=== PATIENT | female | born 1995 | race African-American/Black ===

== ENCOUNTER 2022-12-03 18:49 | Day surgery (SDC) | payer MEDICAID, OTHER ==
[2022-12-03] MEDS ORDERED: hydrALAZINE 20 MG/ML VIAL SLOW IVP PRN (19:00)
[2022-12-03 19:26] VITALS: BMI 29.0
== END 2022-12-03 21:00 | disposition left against medical advice (07) ==
LOC: CSHLD/OP 18:49
PROVIDERS: ATTEND Family Medicine
DX: O26.872 Cervical shortening, second trimester (principal); O99.512 Diseases of the respiratory system complicating pregnancy, second trimester; J45.50 Severe persistent asthma, uncomplicated; O99.342 Other mental disorders complicating pregnancy, second trimester; F41.8 Other specified anxiety disorders; O99.322 Drug use complicating pregnancy, second trimester; F12.90 Cannabis use, unspecified, uncomplicated; Z87.891 Personal history of nicotine dependence; Z3A.22 22 weeks gestation of pregnancy
CPT/HCPCS: 99281

== ENCOUNTER 2023-02-18 13:12 | Inpatient (IN) | payer OTHER ==
[~2023-02-18 13:12] MED LIST: Bupivacaine 0.25% HCL 30 ML VIAL ONE
[2023-02-18 13:45] VITALS: BMI 29.5
[2023-02-18] MEDS ORDERED: fentaNYL 50 mcg/mL 1 mL Vial SLOW IVP PRN (14:03)
[2023-02-18] MEDS ORDERED: Promethazine HCl 25 MG/ML VIAL IM PRN ×2 (14:03→15:49)
[2023-02-18] MEDS ORDERED: HYDROcodone/Acetaminophen 5/325 mg Tablet PO PRN ×2 (14:03)
[2023-02-18] MEDS ORDERED: Ibuprofen 800 MG TAB PO PRN (14:03)
[2023-02-18] MEDS ORDERED: Acetaminophen 500 MG TAB PO PRN (14:03)
[2023-02-18] MEDS ORDERED: Lidocaine 1% (PF) 30 ML VIAL SC PRN (14:03)
[2023-02-18] MEDS ORDERED: Ondansetron PF 4 MG/2 ML Vial IVP PRN ×2 (14:03→15:49)
[2023-02-18] MEDS ORDERED: hydrALAZINE 20 MG/ML VIAL SLOW IVP PRN (14:03)
[2023-02-18] MEDS ORDERED: Tranexamic Acid 1,000 MG/10 ML VIAL IVP PRN (14:03)
[2023-02-18] MEDS ORDERED: Misoprostol 200 MCG TAB PR PRN (14:03)
[2023-02-18] MEDS ORDERED: Lidocaine 1% (PF) 30 ML VIAL ONE (14:05)
[2023-02-18] MEDS ORDERED: NS w/ Oxytocin 30 units 500 ML ONE (14:05)
[2023-02-18] MEDS ORDERED: Penicillin G Potassium 5 MILL.UNITS VIAL ONE (14:05)
[2023-02-18] MEDS ORDERED: Carboprost 250 MCG/ML AMP IM PRN (14:12)
[2023-02-18] MEDS ORDERED: Diphenoxylate HCl/Atropine Tablet PO PRN ×2 (14:12)
[2023-02-18] MEDS ORDERED: Lactated Ringer's 1,000 ML IV SCH ×2 (14:15)
[2023-02-18] MEDS ORDERED: Penicillin G Potassium 5 MILL.UNITS in Sodium Chloride 0.9% 100 ML IVPB SCH (14:15)
[2023-02-18] MEDS ORDERED: NS w/ Oxytocin 30 units 500 ML IV SCH (14:15)
[2023-02-18 14:30] LABS: #Eosinphils 0.2 10x3/uL (0.0-0.5); #Neutrophils 7.3 10x3/uL (1.5-8.4); %Basophils 0.4 % (0.0-2.0); %Eosinophils 1.6 % (0.0-6.0); %Lymphocytes 22.2 % (18.0-47.0); %Monocytes 9.1 % (0.0-10.0); %Neutrophils 64.7 % (40.0-75.0); Mean Corpuscular HGB CONC 32.8 g/dL (32.0-36.0); Mean Corpuscular Hemoglobin 28.8 pg (27.0-33.0); Mean Platelet Volume 11.7 fl (7.4-10.4); Platelet Count 189 10x3/uL (150-450); RBC Distribution Width 13.3 % (11.5-14.5); Red Blood Cell (RBC) Count 4.16 10x6/uL (3.90-5.03); White Blood Cell (WBC) Count 11.3 10x3/uL (3.5-10.5)
[2023-02-18 14:42] LABS: ALT (SGPT) 29 U/L (8-55); AST (SGOT) 19 U/L (5-34); Albumin 3.4 g/dL (3.5-5.0); Alkaline Phosphatase 105 U/L (40-110); Anion Gap 15 mmol/L (10-20); BUN (Urea Nitrogen) 4 mg/dL (7.0-18.7); Bilirubin, Total 0.2 mg/dL (0.2-1.2); Calc. Creatinine Clearance 180 mL/min (70-130); Calcium 8.9 mg/dL (7.8-10.44); Carbon Dioxide 19 mmol/L (22-29); Chloride 110 mmol/L (98-107); Estimated GFR 122; Globulin 2.8 g/dL (2.4-3.5); Glucose 78 mg/dL (70-105); Potassium 3.6 mmol/L (3.5-5.1); Protein, Total 6.2 g/dL (6.0-8.3); Sodium 140 mmol/L (136-145)
[2023-02-18 15:03] LABS: HBSAg Index 0.15 S/CO (0-0.99); Hep B Surf Ag - L&D Non-Reactive S/CO (NonReactive)
[2023-02-18] MEDS ORDERED: fentaNYL/Ropivacaine Epidural 100 ML ONE (15:07)
[2023-02-18 15:10] LABS: Syphilis Antibody Index 22.14 S/CO (<1.00 Non-Reactive)
[2023-02-18] MEDS ORDERED: Moisturizing Cream (Eucerin) 113 GM JAR TOP PRN (15:49)
[2023-02-18] MEDS ORDERED: Acetaminophen 325 MG TAB PO PRN (15:49)
[2023-02-18] MEDS ORDERED: Naloxone HCl 0.4 mg/ml Vial IVP PRN ×2 (15:49)
[2023-02-18] MEDS ORDERED: Lactated Ringer's 500 ML IV PRN (15:49)
[2023-02-18] MEDS ORDERED: ePHEDrine Sulfate 50 MG/10 ML VIAL SLOW IVP PRN (15:49)
[2023-02-18] MEDS ORDERED: diphenhydrAMINE 50 MG/ML VIAL IVP PRN (15:49)
[2023-02-18] MEDS ORDERED: Ventolin HFA Inhaler 60 PUFF INHALER INH PRN (15:58)
[2023-02-18] MEDS ORDERED: Communication Order-Pharmacy FS SCH (16:00)
[2023-02-18] MEDS ORDERED: fentaNYL 2 mcg/Ropivacaine 0.2% Epidural 100 ML CADD EPIDURAL SCH (16:00)
[2023-02-18 16:43] LABS: Amphetamine Not Detected (NotDetected); Barbiturates Screen Not Detected (NotDetected); Benzodiazepine Screen Not Detected (NotDetected); Cocaine Metabolite Screen Not Detected (NotDetected); Methadone Not Detected (NotDetected); Methamphetamine Not Detected (NotDetected); Opiate Screen Not Detected (NotDetected); Oxycodone Screen Not Detected (NotDetected); Phencyclidine (PCP) Not Detected (NotDetected); THC/Cannabinoid Screen Detected (NotDetected); Tricyclic Screen Not Detected (NotDetected)
[2023-02-18 17:58] LABS: Bilirubin Neg (Negative); Blood, Urine 10 (Negative); Clarity Clear (Clear); Glucose, Urine (Dipstick) Normal (Negative); Ketone, Urine Negative (Negative); Leukocyte Negative (Negative); Nitrite Negative (Negative); Protein, Urine (Dipstick) Negative (Neg-Trace); Urobilinogen Normal mg/dL (Less than 2)
[2023-02-18 18:14] LABS: RBC/HPF 0-3 HPF (0-3); WBC/HPF None Seen HPF (0-3)
[2023-02-18 18:15] LABS: Bacteria/HPF Rare-Few HPF (None Seen); Mucous/LPF Rare LPF (<2+); Squamous Epithelial 0-3 HPF (0-3)
[2023-02-18] MEDS ORDERED: Penicillin G 2.5 MILL.units 2.5 MILL.UNITS in Premix Bag 1 BAG IVPB SCH (18:15)
[2023-02-18] MEDS ORDERED: Methylergonovine 0.2 MG/ML VIAL IM PRN (18:34)
[2023-02-18 19:49] LABS: Syphilis Antibody INDETERMINATE (Nonreactive)
[2023-02-18] MEDS ORDERED: Bisacodyl 10 MG SUPP PR PRN (20:32)
[2023-02-18] MEDS ORDERED: Milk Of Magnesia 30 ML UDCUP PO PRN (20:32)
[2023-02-18] MEDS ORDERED: Boostrix 0.5 ML (Tdap) VIAL (>/=7 yrs of age) IM ONE (20:32)
[2023-02-18] MEDS ORDERED: Benzocaine-Menthol 82.5 ML CAN TOP PRN (20:32)
[2023-02-18] MEDS: Docusate 100 MG CAP PO SCH (21:00)
[2023-02-18] MEDS: Mometasone/Formoterol 200/5 60 PUFF INH SCH (21:30)
[2023-02-18] MEDS: Ibuprofen 800 MG TAB PO SCH (22:00)
[2023-02-19 00:30] LABS: Chlamydia by PCR, Vaginal Swab Not Detected (NotDetected); GC by PCR, Vaginal Swab Not Detected (NotDetected); Tric.vaginalis PCR,Vaginal Sw DETECTED (NotDetected)
[2023-02-19] MEDS: Ibuprofen 800 MG TAB PO SCH ×3 (05:35→21:25)
[2023-02-19] MEDS: Mometasone/Formoterol 200/5 60 PUFF INH SCH ×3 (06:42→20:23)
[2023-02-19] MEDS: Docusate 100 MG CAP PO SCH ×2 (08:31→21:25)
[2023-02-19] MEDS: metroNIDAZOLE 500 MG TAB PO SCH ×2 (08:31→21:25)
[2023-02-19] MEDS: Prenatal Vitamin 1 TAB PO SCH (08:31)
[2023-02-19] MEDS: Ferrous Sulfate 325 MG TAB PO SCH ×2 (08:31→16:54)
[2023-02-19 22:17] LABS: Group B Streptococcus by PCR Not Detected (NotDetected)
[2023-02-20] MEDS: Ibuprofen 800 MG TAB PO SCH ×2 (06:43→14:15)
[2023-02-20 07:47] VITALS: BP 126/80; TEMP 98
[2023-02-20] MEDS ORDERED: Bicillin LA 2.4 MILL.UNITS/4 ML SYRINGE IM SCH ×2 (08:30→20:00)
[2023-02-20] MEDS: Ferrous Sulfate 325 MG TAB PO SCH (08:32)
[2023-02-20] MEDS: metroNIDAZOLE 500 MG TAB PO SCH (08:32)
[2023-02-20] MEDS: Docusate 100 MG CAP PO SCH (08:32)
[2023-02-20] MEDS: Prenatal Vitamin 1 TAB PO SCH (08:33)
[2023-02-20] MEDS: Mometasone/Formoterol 200/5 60 PUFF INH SCH (10:30)
== END 2023-02-20 14:22 | disposition home or self-care (01) | DRG 768 ==
LOC: CSHLD/OP 13:12 → CSHLD 15:09 → CSHPP 23:15
PROVIDERS: ADMIT Student in an Organized Health Care Education/Training Program; ATTEND Student in an Organized Health Care Education/Training Program
PROC: 10E0XZZ Delivery of Products of Conception, External Approach (ICD-10-PCS; principal; 2023-02-18)
PROC: 0UCC7ZZ Extirpation of Matter from Cervix, Via Natural or Artificial Opening (ICD-10-PCS; 2023-02-18)
DX: O60.14X0 Preterm labor third trimester with preterm delivery third trimester, not applicable or unspecified (principal); Z37.0 Single live birth; O26.873 Cervical shortening, third trimester; O98.12 Syphilis complicating childbirth; J45.909 Unspecified asthma, uncomplicated; O99.52 Diseases of the respiratory system complicating childbirth; F41.9 Anxiety disorder, unspecified; F32.9 Major depressive disorder, single episode, unspecified; O42.013 Preterm premature rupture of membranes, onset of labor within 24 hours of rupture, third trimester; O36.5930 Maternal care for other known or suspected poor fetal growth, third trimester, not applicable or unspecified; A59.9 Trichomoniasis, unspecified; O99.892 Other specified diseases and conditions complicating childbirth; A52.8 Late syphilis, latent; O99.344 Other mental disorders complicating childbirth; O77.0 Labor and delivery complicated by meconium in amniotic fluid; Z79.51 Long term (current) use of inhaled steroids; Z3A.33 33 weeks gestation of pregnancy; Z91.013 Allergy to seafood
CPT/HCPCS: 51702; 80053; 80306; 81001; 86140; 86593; 86780; 86850; 86900; 86901; 87086; 87340; 87491; 87591; 87653; 87661; 88307; 94664; 94760; 94762; 99285; J0561; J2001; J2540; J2590; S0020